=== PATIENT | female | born 1955 | race Caucasian/White ===

== ENCOUNTER → 2018-05-27 09:41 | Outpatient (CLI) | payer OTHER, SELFPAY | PROVIDERS: Family Provider Physician Assistant; PCP Physician Assistant; Visit Provider Physician Assistant | DX: R30.0 Dysuria (principal) | CPT/HCPCS: 87077; 87086; 87186 ==

== ENCOUNTER 2018-09-02 20:25 | Emergency (ER) | payer OTHER, SELFPAY ==
[2018-09-02 20:28] VITALS: PULSE 70; RESP 18; TEMP 36.6; O2SAT 100
--- NOTE | 2018-09-02 20:47 | ED.LOWEXIN ---
HPI - Extremity Injury (Lower) General Chief Complaint: Extremity Injury, Lower Stated Complaint: TWISTED RT KNEE Time Seen by Provider: 09/02/18 20:35 Related Data Previous Rx's Medication Instructions Recorded levothyroxine [Synthroid] 75 mcg PO QAM #90 tab 08/29/17 amlodipine 2.5 mg tablet See Rx Instructions PO DAILY #60 08/09/18 tab Allergies Allergy/AdvReac Type Severity Reaction Status Date / Time codeine [CODEINE] Allergy Severe NAUSEA, Verified 09/02/18 20:32 VOMITING, UPSET STOMACH, PASSING OUT hydrocodone [HYDROCODONE] Allergy Severe NAUSEA, Verified 09/02/18 20:32 VOMITING, UPSET STOMACH AND PASSING OUT oxycodone [OXYCODONE] Allergy Severe NAUSEA, Verified 09/02/18 20:32 VOMITING, UPSET STOMACH AND PASSING OUT PFSH Surgical History History of cataract removal with insertion of prosthetic lens History of tonsillectomy Status post appendectomy Status post breast lumpectomy Family History Mother Lung cancer Social History Smoking Status: Never smoker alcohol intake: current (minimal) Family History Mother Lung cancer Social History Smoking Status: Never smoker alcohol intake: current (minimal) Exam Initial Vital Signs Initial Vital Signs: Vital Signs Temperature 97.8 F 09/02/18 20:28 Pulse Rate 70 09/02/18 20:28 Respiratory Rate 18 09/02/18 20:28 Pulse Oximetry 100 09/02/18 20:28 Course Vital Signs - 8 hr 09/02/18 20:28 Temperature 97.8 F Pulse Rate 70 Respiratory Rate 18 Pulse Oximetry 100 Discharge Plan Departure Prescriptions: No Action levothyroxine [Synthroid] 75 MCG tablet 75 mcg PO QAM Qty: 90 RF: 3 amlodipine 2.5 mg tablet See Rx Instructions PO DAILY Qty: 60 RF: 0
--- NOTE | 2018-09-02 21:17 | DI.RAD.S_ITS ---
PROCEDURE: XR KNEE RT 3V INDICATIONS: knee pain, twisted while skiing TECHNIQUE: 3 views of the knee were acquired. COMPARISON: None. FINDINGS: Bones: No fractures or dislocations. No suspicious bony lesions. Soft tissues: No joint effusion. No suspicious soft tissue calcifications. IMPRESSION: No acute radiographic findings. If pain persists, consider advanced imaging with CT or MRI. Dictated by: Deanna Woodrfuf M.D. on 09/02/2018 at 21:36 Approved by: Deanna Woodruff M.D. on 09/02/2018 at 21:37
[2018-09-02 21:48] VITALS: BP 124/75; PULSE 65; RESP 16; O2SAT 98
[2018-09-02 22:32] VITALS: BP 114/63; PULSE 66; RESP 16; TEMP 36.4; O2SAT 100
--- NOTE | 2018-09-03 04:47 | ED.LOWEXIN ---
HPI - Extremity Injury (Lower) General Chief Complaint: Extremity Injury, Lower Stated Complaint: TWISTED RT KNEE Time Seen by Provider: 09/02/18 20:35 Source: patient Mode of arrival: wheelchair Limitations: no limitations History of Present Illness HPI Narrative: 63-year-old female nonsmoker with history of hypertension presents to the emergency department a chief complaint of right lateral knee pain since a skiing injury earlier in the day. She was actually in line to load a lift when her ski use were caught up in a friend's and she fell, twisting her right knee. She states she did not directly impacted on any hard surface. She denies any history of knee pain. She denies numbness, tingling or weakness. She admits to increasing pain with ambulation and improvement with rest. The majority of her pain is along the lateral aspect of her right knee. She denies hip or ankle pain Related Data Previous Rx's Medication Instructions Recorded levothyroxine [Synthroid] 75 mcg PO QAM #90 tab 08/29/17 amlodipine 2.5 mg tablet See Rx Instructions PO DAILY #60 08/09/18 tab Allergies Allergy/AdvReac Type Severity Reaction Status Date / Time codeine [CODEINE] Allergy Severe NAUSEA, Verified 09/02/18 20:32 VOMITING, UPSET STOMACH, PASSING OUT hydrocodone [HYDROCODONE] Allergy Severe NAUSEA, Verified 09/02/18 20:32 VOMITING, UPSET STOMACH AND PASSING OUT oxycodone [OXYCODONE] Allergy Severe NAUSEA, Verified 09/02/18 20:32 VOMITING, UPSET STOMACH AND PASSING OUT Review of Systems Constitutional Denies chills, Denies fever(s), Denies lethargy and Denies weakness Eyes Denies change in vision, Denies eye discharge, Denies irritation and Denies loss of vision ENT Ears, Nose, Mouth, and Throat: Denies change in voice, Denies neck pain and Denies sore throat Cardiovascular Denies chest pain, Denies irregular heart rhythm, Denies lightheadedness, Denies palpitations, Denies dyspnea, Denies dyspnea on exertion and Denies orthopnea Respiratory Denies cough, Denies dyspnea, Denies dyspnea on exertion and Denies wheezing Gastrointestinal Gastrointestinal: Denies abdominal pain, Denies change in bowel habits, Denies diarrhea, Denies nausea and Denies vomiting Genitourinary Denies hematuria, Denies flank pain, Denies urinary incontinence and Denies urinary urgency Musculoskeletal Reports joint swelling, Reports limited range of motion and Denies neck pain Integumentary/Breasts Denies pruritus, Denies erythema, Denies rash and Denies wounds Neurologic Denies confusion, Denies loss of vision and Denies weakness Psychiatric Denies anxiety, Denies confusion, Denies depression, Denies homicidal ideation and Denies suicidal ideation Endocrine Denies palpitations Hematologic/Lymphatic Denies easy bruising Allergic/Immunologic Denies wheezing PFSH Surgical History History of cataract removal with insertion of prosthetic lens History of tonsillectomy Status post appendectomy Status post breast lumpectomy Family History Mother Lung cancer Social History Smoking Status: Never smoker alcohol intake: current (minimal) Family History Mother Lung cancer Social History Smoking Status: Never smoker alcohol intake: current (minimal) Exam Narrative Exam Narrative: GEN: 63F appears generally healthy. AOx3 and in mild distress, rubbing her knee EYES: Pupils are equal, round, and reactive to light and accommodation. Extraoccular muscles are intact bilaterally. There is no subconjunctival hemorrhage or exudate. CHEST: Lungs are clear to auscultation bilaterally and free of wheezes, rales, or rhonchi. Heart rate is regular rhythm, there are no murmurs, clicks, rubs, or gallops. There is no chest wall tenderness. ABD: Abdomen is soft and nontender. There is no guarding or rebound. Bowel sounds are normal in all 4 quadrants. There is no mass or organomegaly. EXT: Mild effusion, no obvious deformity, tender to palp on lateral joint line, no obvious ligamentous instability. NV in tact distal to injury SKIN: Warm, pink, and dry. No erythema or rash Initial Vital Signs Initial Vital Signs: Vital Signs Temperature 97.8 F 09/02/18 20:28 Pulse Rate 70 09/02/18 20:28 Respiratory Rate 18 09/02/18 20:28 Pulse Oximetry 100 09/02/18 20:28 Course Orders Ordered: ED Orders 09/02/18 21:17 XR knee RT 3V Stat Vital Signs - 8 hr 09/02/18 22:32 Temperature 97.5 F L Pulse Rate 66 Respiratory Rate 16 Blood Pressure 114/63 Pulse Oximetry 100 MDM - Extremity Injury (Lower) Medical Records Attestation: I reviewed the patient's medical records. Lab Data Attestation: I reviewed the patient's lab results. Imaging Data Knee Xray: Radiologist's impression: [address] [address] XRay Report Signed Patient: Lanette Rios JMR#: [id number] : 5Acct:[id number] Age/Sex: 63 / FDate of Service: 09/02/18 Loc: ED Accession Number: [id number] Procedure: XR knee RT 3V Ordering Provider: Ryan Bowling D.O. PROCEDURE: XR KNEE RT 3V INDICATIONS: knee pain, twisted while skiing TECHNIQUE: 3 views of the knee were acquired. COMPARISON: None. FINDINGS: Bones: No fractures or dislocations. No suspicious bony lesions. Soft tissues: No joint effusion. No suspicious soft tissue calcifications. IMPRESSION: No acute radiographic findings. If pain persists, consider advanced imaging with CT or MRI. Dictated by: Deanna Woodruff M.D. on 09/02/2018 at 21:36 Approved by: Deanna Woodruff M.D. on 09/02/2018 at 21:37 [facility] Narrative Medical decision making narrative: As patient's mechanism is most consistent with the soft tissue or ligamentous injury. X-ray demonstrates no obvious fracture. Patient has no complaints of instability with ambulation, only pain. We discussed options for splinting and patient states that she would prefer to wait and try to find a a hinged brace Discharge Plan Departure Patient Disposition: Home Clinical Impression: Internal derangement of knee, acute Qualifiers: Laterality: right Qualified Code(s): M23.91 - Unspecified internal derangement of right knee Discharge Date/Time: 09/02/18 22:34 Interventions: ED Discharge Assessment Last Done: 09/02/18 22:32 Instructions: DI for Knee Pain Activity Restrictions/Additional Instructions: *You have been diagnosed with [ right knee sprain ] *What to do: *Take medications as directed *Follow up with your primary care provider in 2-3 days, call for an appointment. Let them know you were seen in the Emergency Department and that we ask that you be seen in follow up *Return to ER if you should have any new, worsening or concerning symptoms Prescriptions: No Action levothyroxine [Synthroid] 75 MCG tablet 75 mcg PO QAM Qty: 90 RF: 3 amlodipine 2.5 mg tablet See Rx Instructions PO DAILY Qty: 60 RF: 0 Referrals: Karon Fischer PA-C [Primary Care Provider] -
== END 2018-09-02 22:34 | disposition home or self-care (01) ==
PROVIDERS: Emergency Provider Emergency Medicine; Family Provider Physician Assistant; PCP Physician Assistant
DX: M23.91 Unspecified internal derangement of right knee (principal); Y93.23 Activity, snow (alpine) (downhill) skiing, snowboarding, sledding, tobogganing and snow tubing
CPT/HCPCS: 73562; 99282; 99283

== ENCOUNTER → 2018-09-07 09:12 | Outpatient (CLI) | payer OTHER, SELFPAY ==
--- NOTE | 2018-09-07 09:15 | DI.RAD.S_ITS ---
PROCEDURE: XR ELBOW RT MIN 3V INDICATIONS: pain lateral epicondyle TECHNIQUE: 3 views of the elbow were acquired. COMPARISON: None. FINDINGS: Bones: No fractures or dislocations. No suspicious bony lesions. Soft tissues: No elbow joint effusion. No suspicious soft tissue calcifications. IMPRESSION: Normal for age. Dictated by: Abdulaziz Patel M.D. on 09/07/2018 at 10:18 Approved by: Abdulaziz Patel M.D. on 09/07/2018 at 10:18
== END ==
PROVIDERS: Family Provider Physician Assistant; PCP Physician Assistant; Visit Provider Physician Assistant
DX: M25.521 Pain in right elbow (principal)
CPT/HCPCS: 73080

== ENCOUNTER → 2018-11-29 08:09 | Outpatient (CLI) | payer OTHER, SELFPAY ==
[2018-11-29 10:03] LABS: Alanine Aminotransferase 18 IU/L (9-52); Albumin 4.1 g/dL (3.5-5.0); Albumin Globulin Ratio 1.5 (1.0-2.8); Alkaline Phosphatase 88 U/L (38-126); Aspartate Aminotransferase 29 IU/L (14-36); BUN Creatinine Ratio 23.3 (6-22); Bilirubin Total 0.6 mg/dL (0.2-1.3); Blood Urea Nitrogen 21 mg/dL (7-17); Calcium 8.9 mg/dL (8.4-10.2); Carbon Dioxide 31 mmol/L (22-32); Chloride 102 mmol/L (98-107); Estimated Glomerular Filt Rate > 60.0 mL/min (>60); Globulin 2.7 g/dL (1.7-4.1); Glucose 89 mg/dL (80-110); HEMOLYSIS < 15 (0-50); Potassium 4.3 mmol/L (3.4-5.1); Sodium 138 mmol/L (137-145); Total Protein 6.8 g/dL (6.3-8.2)
[2018-11-29 10:37] LABS: Thyroid Stimulating Hormone 2.34 uIU/mL (0.47-4.68)
== END ==
PROVIDERS: Family Provider Physician Assistant; PCP Physician Assistant; Visit Provider Physician Assistant
DX: E03.9 Hypothyroidism, unspecified (principal); E78.5 Hyperlipidemia, unspecified; Z51.81 Encounter for therapeutic drug level monitoring
CPT/HCPCS: 36415; 80053; 84443

== ENCOUNTER 2019-08-11 17:58 | Observation (INO) | payer BC, SELFPAY ==
[2019-08-11 18:10] VITALS: BP 129/96; PULSE 73; RESP 30; TEMP 36.4; O2SAT 100
--- NOTE | 2019-08-11 18:20 | DI.CT.S_ITS ---
PROCEDURE: CT HEAD/BRAIN WO CON INDICATIONS: fall/hit head, now vomiting TECHNIQUE: Noncontrast 4.5 mm thick angled axial sections acquired from the foramen magnum to the vertex, with coronal and sagittal reformats. For radiation dose reduction, the following was used: automated exposure control, adjustment of mA and/or kV according to patient size. COMPARISON: None. FINDINGS: Image quality: Excellent. CSF spaces: Basal cisterns are patent. No extra-axial fluid collections. Ventricles are normal in size and shape. Brain: No midline shift. No intracranial masses or hemorrhage. Orantes-white matter interface is normal. Skull and face: Calvarium and visualized facial bones are intact, without suspicious lesions. Sinuses: Visualized sinuses and mastoids are clear. IMPRESSION: Negative for acute stroke, hemorrhage, or mass. No evidence of significant intracranial sequelae of acute trauma. Dictated by: Arsh Brothers M.D. on 08/11/2019 at 19:56 Approved by: Arsh Brothers M.D. on 08/11/2019 at 19:57
[2019-08-11] MEDS: ONDANSETRON 4 MG/2 ML INJ (18:25)
[2019-08-11] MEDS: SODIUM CHLORIDE 0.9% 1,000 ML 150 ML IV (18:25)
[2019-08-11 18:35] LABS: Alanine Aminotransferase 20 IU/L (<35); Albumin 4.2 g/dL (3.5-5.0); Albumin Globulin Ratio 1.4 (1.0-2.8); Alkaline Phosphatase 80 U/L (38-126); Aspartate Aminotransferase 36 IU/L (14-36); Bilirubin Total 0.6 mg/dL (0.2-1.3); Blood Urea Nitrogen 18 mg/dL (7-17); Calcium 9.2 mg/dL (8.4-10.2); Carbon Dioxide 24 mmol/L (22-32); Chloride 102 mmol/L (98-107); Estimated Glomerular Filt Rate > 60.0 mL/min (>60); Glucose 167 mg/dL (80-110); HEMOLYSIS < 15 (0-50); Sodium 139 mmol/L (137-145); Total Protein 7.2 g/dL (6.3-8.2)
[2019-08-11 18:41] LABS: Add Manual Diff / Slide Review NO; Basophils Absolute Auto 100 /uL (0-100); Basophils Percent Auto 0.6 % (0-2); Eosinophils Absolute Auto 0 /uL (0-450); Hematocrit 36.2 % (36-46); Hemoglobin 12.4 g/dL (12.0-16.0); Lymphocytes Absolute Auto 1700 /uL (1100-4500); Lymphocytes Percent Auto 16.7 % (25-40); Mean Corpuscular HGB Conc 34.2 % (30-36); Mean Corpuscular Hemoglobin 31.8 PG (26-34); Mean Corpuscular Volume 93.1 fL (80-100); Monocytes Absolute Auto 400 /uL (0-900); Monocytes Percent Auto 3.6 % (3-14); Neutrophils Absolute Auto 8000 /uL (1500-7000); Neutrophils Percent Auto 79.1 % (50-75); Platelet Count 258 X10^3/uL (150-400); Red Blood Cell Count 3.89 X10^6/uL (4.0-5.2); Red Cell Distribution Width 13.7 % (11.6-14.8); White Blood Cell Count 10.2 X10^3/uL (4.5-11.0)
[2019-08-11 19:02] LABS: Creatine Kinase 114 U/L (30-135)
[2019-08-11 19:15] LABS: Troponin I < 0.012 ng/mL (0.01-0.034)
[2019-08-11 19:17] LABS: CKMB % Relative Index 1.4 % (1.5-5.0); Creatine Kinase MB 1.61 ng/mL (<2.37)
--- NOTE | 2019-08-11 19:26 | DI.RAD.S_ITS ---
PROCEDURE: XR CHEST 1V INDICATIONS: dizziness syncope TECHNIQUE: One view of the chest was acquired. COMPARISON: [facility], , CHEST 2 VIEW, 08/11/2017, 11:26. FINDINGS: Surgical changes and devices: None. Lungs and pleura: Lungs are clear. No pleural effusions or pneumothorax. Mediastinum: Mediastinal contours appear normal. Heart size is normal. Bones and chest wall: No suspicious bony lesions. Overlying soft tissues appear unremarkable. IMPRESSION: No evidence acute pulmonary process. Dictated by: Arsh Brothers M.D. on 08/11/2019 at 20:21 Approved by: Arsh Brothers M.D. on 08/11/2019 at 20:22
--- NOTE | 2019-08-11 19:33 | ED.NAVMDI ---
HPI - Nausea/Vomiting/Diarrhea General Chief complaint: Nausea/Vomiting/Diarrhea Stated complaint: nausea,vomiting x7 hrs Time Seen by Provider: 08/11/19 18:27 Source: patient Mode of arrival: Wheelchair Limitations: no limitations History of Present Illness HPI Narrative: CC: Passed out at home and I just feel dizzy and sick. HPI: The patient is a 64-year-old female who is a vague historian. She states that she was lying down on the couch because she did not feel good arm that she had had intermittent periods of cold sweats dizziness nausea vomiting and diarrhea. She sat up and felt dizzy and the next thing she remembers is waking up after striking her left side of her head on the coffee table. She initially had a headache but does not have a headache at this time. The left side of her skull and face mildly aches at this time. She does not know how long she was out. She has had periods of uncontrollable shaking but is awake. She denies it being shivers or rigors. She has had multiple episodes where she suddenly developed cold sweats dizziness nausea vomiting and diarrhea. She denies a history of Crohn's disease ulcerative colitis irritable bowel syndrome. She has had no melena or hematochezia in her stool. She describes her dizziness as feeling lightheaded without disequilibrium. She denies a history of diabetes mellitus hypertension seizure stroke congestive heart failure myocardial infarction. The only medication that she takes his levothyroxine for hypothyroidism. She states that she has no energy and just feels woozy especially when she is sitting up. She has had mild headache but no numbness tingling paresthesias anesthesia or paresis. She denies any fever chills or sweats. She has had no loss of vision scotomata or diplopia. She denies any chest pain palpitations cough shortness of breath. She has had no urinary symptoms. Related Data Previous Rx's Medication Instructions Recorded levothyroxine 75 mcg tablet 75 mcg PO QAM #90 tab 06/29/19 ondansetron HCl [Zofran] 4 mg PO Q6-8H PRN #20 tab 08/12/19 Allergies Allergy/AdvReac Type Severity Reaction Status Date / Time codeine [CODEINE] Allergy Severe NAUSEA, Verified 08/11/19 18:16 VOMITING, UPSET STOMACH, PASSING OUT hydrocodone [HYDROCODONE] Allergy Severe NAUSEA, Verified 08/11/19 18:16 VOMITING, UPSET STOMACH AND PASSING OUT oxycodone [OXYCODONE] Allergy Severe NAUSEA, Verified 08/11/19 18:16 VOMITING, UPSET STOMACH AND PASSING OUT Review of Systems Review of Systems ROS Unobtainable: All systems reviewed & are unremarkable except as noted in HPI and below Patient History Medical History Acquired hypothyroidism (Inactive) History of malignant neoplasm of breast (Inactive) Surgical History History of cataract removal with insertion of prosthetic lens History of tonsillectomy Status post appendectomy Status post breast lumpectomy Family History Mother Lung cancer Father Lewy body dementia Brother No significant medical problems Sister Diabetes mellitus Daughter No significant medical problems Social History household members: spouse Smoking Status: Former smoker alcohol intake: current Smoking Status: Never smoker alcohol intake frequency: 0-2 drinks per day Substance Use Type: does not use Exam Narrative Exam Narrative: PHYSICAL EXAM: CONSTITUTIONAL: Awake, arousable keeps her eyes closed answers questions appropriately. She appears as though she has been mildly sweaty and mildly disheveled and ill. HEAD: AT/NC, there is no soft tissue swelling but her lateral left scalp over the temporoparietal region is mildly tender without any bruising or soft tissue swelling. EENT: PERRL, FROM of eyes, no discharge, no nystagmus No drainage from the ears, Tympanic membranes intact bilaterally, clear EAC, no evidence of hemotympanum No epistaxis or nasal drainage Oral mucosa is moist and pink, posterior pharynx is without erythema or exudate. NECK: Supple, no obvious JVD, Trachea is midline without stridor, no palpable LN or masses. SPINE: No gross deformity, no palpable tenderness of the cervical, thoracic, lumbar or sacral spine. No CVA tenderness. The patient became dizzy when a made her sit up. THORAX: No deformity, retractions, chest wall tenderness, subcutaneous air or crepitice. LUNGS: Clear with symmetrical breath sounds without respiratory distress HEART: Normal heart tones, regular rhythm and rate without murmur. ABDOMEN: Soft, non-tender, normal bowel sounds without guarding, rebound, rigidity or palpable mass or organomegaly. EXTREMITIES: No edema, cyanosis, deformity or tenderness. SKIN: No rash, bruising, petechiae or purpura. NEURO: Awake, alert, oriented, conversive, cranial nerves II-XII are symmetrical and normal, moves all 4 extremities and is ambulatory, finger to nose and cerebellar testing were within normal limits. Rapid alternating motions with the ability to oppose all of her fingers simultaneously to her thumbs are intact. She has symmetrical chair trimmer strength. There is no drift. No evidence of dysmetria. Initial Vital Signs Initial Vital Signs: Vital Signs Temperature 97.6 F 08/11/19 18:10 Pulse Rate 73 08/11/19 18:10 Respiratory Rate 30 H 08/11/19 18:10 Blood Pressure 129/96 H 08/11/19 18:10 Pulse Oximetry 100 08/11/19 18:10 Course Course Course Narrative: The patient's chest x-ray was negative for any acute cardiopulmonary pathology. Her CT scan did not show any traumatic injury bleed inside her head. Her EKG does not show any acute diagnostic changes or arrhythmia that would cause her syncope. Since the patient was having cold sweats nausea vomiting diarrhea I question whether not the patient is clinically dehydrated with a vasovagal syncope causing her to fall and hit her head. When the patient is sitting up or attempting to stand up she becomes symptomatic and woozy. She is unable to walk and road test. The patient will be admitted observation status in rehydrated. The patient does not remember who her doctor is and states that she sees a nurse practitioner that is leaving. Records reveal that her previous physician was Dr. Barraza. Dr. Turcios has been called Orders Ordered: Discontinued Medications Acetaminophen (Tylenol) 650 mg PO Q6HR PRN PRN Reason: Fever/Mild Pain (1-3) Last Admin: 08/12/19 02:14 Dose: 325 mg Documented by: LUPILLO Diphenhydramine HCl (Benadryl) 25 mg IV NOW ONE Stop: 08/11/19 19:25 Last Admin: 08/11/19 23:48 Dose: Not Given Documented by: JOSEFINA Enoxaparin Sodium (Lovenox) 40 mg SUBCUT DAILY [facility] Last Admin: 08/12/19 11:24 Dose: Not Given Documented by: AMRITA Sodium Chloride (Normal Saline 0.9%) 1,000 mls @ 150 mls/hr IV CONT [facility] Stop: 08/11/19 22:37 Last Admin: 08/11/19 18:25 Dose: 150 mls/hr Documented by: MACKENZIE Sodium Chloride (Normal Saline 0.9%) 1,000 mls @ 150 mls/hr IV CONT [facility] Last Admin: 08/12/19 00:23 Dose: 150 mls/hr Documented by: LUPILLO Levofloxacin (Levaquin) 750 mg in 150 mls @ 100 mls/hr IV Q24H [facility] Last Infusion: 08/12/19 02:30 Dose: 0 mls/hr Documented by: Admin: 08/12/19 00:47 Dose: 100 mls/hr Documented by: LUPILLO Sodium Chloride (Normal Saline 0.9%) 1,000 mls @ 125 mls/hr IV CONT [facility] Last Admin: 08/12/19 09:50 Dose: 125 mls/hr Documented by: Infusion: 08/12/19 08:10 Dose: 125 mls/hr Documented by: Admin: 08/12/19 00:10 Dose: 125 mls/hr Documented by: LUPILLO Ketorolac Tromethamine (Toradol) 30 mg IV NOW ONE Stop: 08/11/19 20:47 Last Admin: 08/11/19 21:05 Dose: 30 mg Documented by: JOSEFINA Levothyroxine Sodium (Synthroid) 75 mcg PO 0600 [facility] Naloxone HCl (Narcan) 0.2 mg IV Q2MIN PRN PRN Reason: Opiate Reversal Ondansetron HCl (Zofran) 4 mg IV NOW ONE Stop: 08/11/19 18:23 Last Admin: 08/11/19 23:48 Dose: Not Given Documented by: JOSEFINA Ondansetron HCl (Zofran) 4 mg IV NOW ONE Stop: 08/11/19 19:25 Last Admin: 08/11/19 23:49 Dose: Not Given Documented by: JOSEFINA Ondansetron HCl (Zofran) 4 mg IV Q6HR PRN PRN Reason: Nausea And Vomiting Pantoprazole Sodium (Protonix) 40 mg IV DAILY [facility] Last Admin: 08/12/19 11:25 Dose: Not Given Documented by: Admin: 08/12/19 01:54 Dose: 40 mg Documented by: LUPILLO Vital Signs Vital signs: Vital Signs - 8 hr 08/11/19 18:10 08/11/19 20:04 08/11/19 21:30 Temperature 97.6 F Pulse Rate 73 72 Pulse Rate [Orthostatic Lying] 67 Pulse Rate [Orthostatic Sitting] 70 Pulse Rate [Orthostatic Standing] 70 Respiratory Rate 30 H 13 Blood Pressure 129/96 H Blood Pressure [Orthostatic Lying] 120/59 L Blood Pressure [Orthostatic Sitting] 128/57 L Blood Pressure [Orthostatic Standing] 127/58 L Blood Pressure [Right Arm] 113/56 L Pulse Oximetry 100 97 MDM - Nausea/Vomiting/Diarrhea Medical Records Attestation: I reviewed the patient's medical records. Lab Data Attestation: I reviewed the patient's lab results. Result diagrams: 08/12/19 04:56 08/12/19 04:56 Labs: Lab Results 08/11/19 08/11/19 08/11/19 Range/Units 18:10 18:10 18:10 WBC 10.2 (4.5-11.0) X10^3/uL RBC 3.89 L (4.0-5.2) X10^6/uL Hgb 12.4 (12.0-16.0) g/dL Hct 36.2 (36-46) % MCV 93.1 (80-100) fL MCH 31.8 (26-34) PG MCHC 34.2 (30-36) % RDW 13.7 (11.6-14.8) % Plt Count 258 (150-400) X10^3/uL Neut % (Auto) 79.1 H (50-75) % Lymph % (Auto) 16.7 L (25-40) % Hughes % (Auto) 3.6 (3-14) % Eos % (Auto) 0.0 L (2-4) % Baso % (Auto) 0.6 (0-2) % Neut # (Auto) 8000 H (0292-8852) /uL Lymph # (Auto) 1700 (6424-8245) /uL Hughes # (Auto) 400 (0-900) /uL Eos # (Auto) 0 (0-450) /uL Baso # (Auto) 100 (0-100) /uL Sodium 139 (137-145) mmol/L Potassium 4.0 (3.4-5.1) mmol/L Chloride 102 (98-107) mmol/L Carbon Dioxide 24 (22-32) mmol/L BUN 18 H (7-17) mg/dL Creatinine 0.90 (0.52-1.04) mg/dL Estimated GFR > 60.0 (>60) mL/min BUN/Creatinine Ratio 20.0 (6-22) Glucose 167 H (80-110) mg/dL Calcium 9.2 (8.4-10.2) mg/dL Magnesium (1.6-2.3) mg/dL Total Bilirubin 0.6 (0.2-1.3) mg/dL AST 36 (14-36) IU/L ALT 20 (<35) IU/L Alkaline Phosphatase 80 (38-126) U/L Total Creatine Kinase 114 (30-135) U/L CK-MB (CK-2) 1.61 (<2.37) ng/mL CK-MB (CK-2) Rel Index 1.4 L (1.5-5.0) % Troponin I < 0.012 (0.01-0.034) ng/mL Total Protein 7.2 (6.3-8.2) g/dL Albumin 4.2 (3.5-5.0) g/dL Globulin 3.0 (1.7-4.1) g/dL Albumin/Globulin Ratio 1.4 (1.0-2.8) Procalcitonin (<0.5) ng/mL TSH (0.47-4.68) uIU/mL 08/11/19 08/11/19 08/11/19 Range/Units 18:10 18:10 18:10 WBC (4.5-11.0) X10^3/uL RBC (4.0-5.2) X10^6/uL Hgb (12.0-16.0) g/dL Hct (36-46) % MCV (80-100) fL MCH (26-34) PG MCHC (30-36) % RDW (11.6-14.8) % Plt Count (150-400) X10^3/uL Neut % (Auto) (50-75) % Lymph % (Auto) (25-40) % Hughes % (Auto) (3-14) % Eos % (Auto) (2-4) % Baso % (Auto) (0-2) % Neut # (Auto) (1577-0449) /uL Lymph # (Auto) (5125-3022) /uL Hughes # (Auto) (0-900) /uL Eos # (Auto) (0-450) /uL Baso # (Auto) (0-100) /uL Sodium (137-145) mmol/L Potassium (3.4-5.1) mmol/L Chloride (98-107) mmol/L Carbon Dioxide (22-32) mmol/L BUN (7-17) mg/dL Creatinine (0.52-1.04) mg/dL Estimated GFR (>60) mL/min BUN/Creatinine Ratio (6-22) Glucose (80-110) mg/dL Calcium (8.4-10.2) mg/dL Magnesium 2.0 (1.6-2.3) mg/dL Total Bilirubin (0.2-1.3) mg/dL AST (14-36) IU/L ALT (<35) IU/L Alkaline Phosphatase (38-126) U/L Total Creatine Kinase (30-135) U/L CK-MB (CK-2) (<2.37) ng/mL CK-MB (CK-2) Rel Index (1.5-5.0) % Troponin I (0.01-0.034) ng/mL Total Protein (6.3-8.2) g/dL Albumin (3.5-5.0) g/dL Globulin (1.7-4.1) g/dL Albumin/Globulin Ratio (1.0-2.8) Procalcitonin < 0.05 (<0.5) ng/mL TSH 2.79 (0.47-4.68) uIU/mL ECG Data Attestation: I personally reviewed and interpreted this ECG as follows: Interpretation: The patient's EKG obtained on August 11 at 6:18 p.m.: 2 5 reveals a sinus rhythm with an occasional PVC. Intervals appear to be normal. She has a slightly prolonged QTC of 458 milliseconds. She has left axis deviation. She has inverted T-waves in leads V1. She has nonspecific ST segment changes in III V4 V5 V6. There are no acute diagnostic changes. The patient has a small R waves in leads V1 V2 and V3. Discharge Plan Departure Patient Disposition: Admitted as Observation Clinical Impression: Syncope and collapse, Dehydration, Syncope, vasovagal Head injury Qualifiers: Encounter type: initial encounter Qualified Code(s): S09.90XA - Unspecified injury of head, initial encounter Acute post-traumatic headache Qualifiers: Intractability: not intractable Qualified Code(s): G44.319 - Acute post-traumatic headache, not intractable Nausea & vomiting Qualifiers: Vomiting type: unspecified Vomiting Intractability: non-intractable Qualified Code(s): R11.2 - Nausea with vomiting, unspecified Diarrhea Qualifiers: Diarrhea type: unspecified type Qualified Code(s): R19.7 - Diarrhea, unspecified Discharge Date/Time: 08/12/19 00:41 Admit Date/Time: 08/11/19 22:22 Admit Provider: Zack Cintron
--- NOTE | 2019-08-11 19:56 | PC.NURSE ---
Pt declining Benadryl and zofran at this time.
[2019-08-11 20:04] VITALS: BP 120/59; BP 127/58; BP 128/57; PULSE 67; PULSE 70
[2019-08-11 20:17] LABS: Thyroid Stimulating Hormone 2.79 uIU/mL (0.47-4.68)
[2019-08-11] MEDS: KETOROLAC 60 MG/2 ML VIAL 30 MG IV (21:05)
[2019-08-11 21:30] VITALS: BP 113/56; PULSE 72; RESP 13; O2SAT 97
[2019-08-11 23:00] VITALS: BP 107/52; PULSE 63; RESP 15; O2SAT 96
[2019-08-11 23:14] LABS: Procalcitonin < 0.05 ng/mL (<0.5)
--- NOTE | 2019-08-11 23:39 | PM.HP.1 ---
History of Present Illness History of Present Illness Date Patient Seen: 08/11/19 Time Patient Seen: 23:13 Chief complaint: nausea,vomiting x7 hrs Narrative: Ms Lanette Rios is a 64-year-old female with a history significant only for hypothyroidism who presents to the ER today following a syncopal episode. Patient states she was feeling well got up early this morning and went to lay down on the couch to rest. Upon waking at 10:30 a.m. the patient sat up and apparently slumped forward hitting her head on the coffee table. She felt no prodromal symptoms prior to the event but complains left hip pain with onset of nausea and vomiting, diaphoresis and developed diarrhea. She She describes recurrent episodes of vomiting and diarrhea profound weakness and would become dizzy on attempting to set up. She further reports that she had an episode of rigors after arriving at the ER. She reports consuming the same food for the last 24 hours is her who is not ill. She has had no sick contacts though she does endorse that she has been in contact with a friend who was screened but ruled out for handley virus and denies respiratory symptoms. She reports no antecedent fevers or chills and currently has a left-sided headache. She denies visual changes nasal congestion or sore throat. She has no difficulty chewing or swallowing. She denies shortness of breath cough or wheezing. She has abdominal tenderness or related to protracted vomiting and has had multiple bowel movements progressing from soft to diarrhea. She denies urinary symptoms with no frequency burning or urgency. The patient is typically active and fully independent in all ADLs. Upon arrival to the ER the patient is afebrile with temperature 97.8?, heart rate 65, blood pressure 122/64, respirations 16 saturating 98% on room air. Chest x-ray obtained which is unremarkable with no acute cardiopulmonary findings. His CT is negative for stroke, bleed, mass or sequelae of trauma. Twelve lead EKG is sinus rhythm with unifocal PVCs with no evidence of ischemia, anterior Q-waves consistent with septal MA. On laboratory analysis white count is 10.2 with hemoglobin of 12.4 and hematocrit of 36.2 with platelets of 258. Electrolytes are all within normal limits with a BUN of 18 and creatinine of 0.9. She has an elevated glucose at 167. Her magnesium level is 2.0 and liver functions are all within normal range She has a negative procalcitonin at less than 0.05. Total CK is 14 and troponin is negative at less than 0.012. TSH is 2.79. Ambulation trial within the emergency department failed and the patient is admitted to the medicine service for syncope and acute gastroenteritis. Patient History Medical History Acquired hypothyroidism (Inactive) History of malignant neoplasm of breast (Inactive) Surgical History History of cataract removal with insertion of prosthetic lens History of tonsillectomy Status post appendectomy Status post breast lumpectomy Family & Social History Family History (Updated 08/12/19 @ 00:06 by ESTEBAN Mederos) Mother Lung cancer Father Lewy body dementia Brother No significant medical problems Sister Diabetes mellitus Daughter No significant medical problems Safety & Behavioral: Feels Safe in Current Yes Environment Been Physically Hurt or No Threatened By a Person Tobacco & Substance use: Smoking Status Never smoker alcohol intake current alcohol intake frequency 0-2 drinks per day Substance Use Type does not use Comment: Patient lives in a single family home with her to whom she has been for 20 years. She dorsi history of her father having Lewy body dementia passing for complications ammonia. Her mother had lung cancer. She has 1 brother who is in good health and a sister with diabetes. She has 1 daughter who is in good health. Occupation: radiographic technologist Smoking: Past smoker, quit approximately 30 years ago before which she smoked approximately 1/2 pack per day, estimated 6 pack year history. Alcohol: Patient endorses consuming occasional beer or wine. Substance use: The patient denies recreation pharmaceuticals, herbal or cannabis products. Advanced directives: Patient does have formal advanced directive and states her wish to be FULL CODE. She designates her to be her surrogate decision maker. Meds Home Medications and Allergies Home Medications Medication Instructions Recorded Confirmed Type Massage Therapy 1 each .ROUTE .COMPLEX #24 each 09/11/18 Rx lorazepam 0.5 mg tablet 0.5 mg PO QD-BID PRN #10 tab 11/03/18 08/12/19 Rx levothyroxine 75 mcg tablet 75 mcg PO QAM #90 tab 06/29/19 08/11/19 Rx Allergies Allergy/AdvReac Type Severity Reaction Status Date / Time codeine [CODEINE] Allergy Severe NAUSEA, Verified 08/11/19 18:16 VOMITING, UPSET STOMACH, PASSING OUT hydrocodone [HYDROCODONE] Allergy Severe NAUSEA, Verified 08/11/19 18:16 VOMITING, UPSET STOMACH AND PASSING OUT oxycodone [OXYCODONE] Allergy Severe NAUSEA, Verified 08/11/19 18:16 VOMITING, UPSET STOMACH AND PASSING OUT Review of Systems Review of Systems Narrative: All systems reviewed and found unremarkable under discussed in the HPI above. Exam Vital Signs (past 8 hours): - 08/11/19 18:10 08/11/19 20:04 08/11/19 21:30 Temperature 97.6 F Pulse Rate 73 72 Pulse Rate [Orthostatic Lying] 67 Pulse Rate [Orthostatic Sitting] 70 Pulse Rate [Orthostatic Standing] 70 Respiratory Rate 30 H 13 Blood Pressure 129/96 H Blood Pressure [Orthostatic Lying] 120/59 L Blood Pressure [Orthostatic Sitting] 128/57 L Blood Pressure [Orthostatic Standing] 127/58 L Blood Pressure [Right Arm] 113/56 L Pulse Oximetry 100 97 08/11/19 23:00 Temperature Pulse Rate 63 Pulse Rate [Orthostatic Lying] Pulse Rate [Orthostatic Sitting] Pulse Rate [Orthostatic Standing] Respiratory Rate 15 Blood Pressure Blood Pressure [Orthostatic Lying] Blood Pressure [Orthostatic Sitting] Blood Pressure [Orthostatic Standing] Blood Pressure [Right Arm] 107/52 L Pulse Oximetry 96 Oxygen Delivery Method Room Air Narrative Exam Narrative: GENERAL APPEARANCE: Well-developed, overweight female who is moderately ill-appearing resting in speaking with her eyes closed. HEENT: Pain on palpation left temporal head without contusion or ecchymosis, PERRLA, conjunctiva clear, sclera anicteric, EOMs intact without nystagmus, no sinus tenderness to percussion, no rhinorrhea, mucous membranes are moist and pink without lesions or exudate. NECK/THYROID: Full range of motion, no cervical step-offs, no JVD, no carotid bruit, no thyromegaly, trachea midline. LYMPH NODES: no cervical or supraclavicular lymphadenopathy. SKIN: [place], warm and dry, no visible lesions, rashes, ulcerations or petechiae. HEART: regular rate and rhythm, S1-S2, no murmur, no rubs or gallops,no edema, 1+ dorsalis pedis pulse. LUNGS: clear to auscultation bilaterally, no coarseness crackles or wheezing, no cough present CHEST: Symmetrical movement, no accessory muscle use, good tidal volume, no pain to AP and lateral compression. ABDOMEN: Soft, no distention, epigastric tenderness on palpation with abdominal wall tenderness, no guarding or peritoneal signs, no organomegaly, no flank or suprapubic tenderness, active bowel tones. EXTREMITIES: moves all extremities, strength is 5/5 and symmetrical, no deformities or joint effusions. NEUROLOGIC: AAO x4, cranial nerves II-XII grossly intact, sensation intact to light touch, light sensitivity with history of same. PSYCH: Flat affect, drowsy, linear thought process, cooperative. Objective Labs Result Diagrams: 08/11/19 18:10 08/11/19 18:10 Labs: Laboratory Results - last 24 hr 08/11/19 08/11/19 08/11/19 18:10 18:10 18:10 WBC 10.2 RBC 3.89 L Hgb 12.4 Hct 36.2 MCV 93.1 MCH 31.8 MCHC 34.2 RDW 13.7 Plt Count 258 Neut % (Auto) 79.1 H Lymph % (Auto) 16.7 L [place] % (Auto) 3.6 Eos % (Auto) 0.0 L Baso % (Auto) 0.6 Neut # (Auto) 8000 H Lymph # (Auto) 1700 [place] # (Auto) 400 Eos # (Auto) 0 Baso # (Auto) 100 Sodium 139 Potassium 4.0 Chloride 102 Carbon Dioxide 24 BUN 18 H Creatinine 0.90 Estimated GFR > 60.0 BUN/Creatinine Ratio 20.0 Glucose 167 H Calcium 9.2 Magnesium Total Bilirubin 0.6 AST 36 ALT 20 Alkaline Phosphatase 80 Total Creatine Kinase 114 CK-MB (CK-2) 1.61 CK-MB (CK-2) Rel Index 1.4 L Troponin I < 0.012 Total Protein 7.2 Albumin 4.2 Globulin 3.0 Albumin/Globulin Ratio 1.4 Procalcitonin TSH 08/11/19 08/11/19 08/11/19 18:10 18:10 18:10 WBC RBC Hgb Hct MCV MCH MCHC RDW Plt Count Neut % (Auto) Lymph % (Auto) [place] % (Auto) Eos % (Auto) Baso % (Auto) Neut # (Auto) Lymph # (Auto) [place] # (Auto) Eos # (Auto) Baso # (Auto) Sodium Potassium Chloride Carbon Dioxide BUN Creatinine Estimated GFR BUN/Creatinine Ratio Glucose Calcium Magnesium 2.0 Total Bilirubin AST ALT Alkaline Phosphatase Total Creatine Kinase CK-MB (CK-2) CK-MB (CK-2) Rel Index Troponin I Total Protein Albumin Globulin Albumin/Globulin Ratio Procalcitonin < 0.05 TSH 2.79 Assessment & Plan Assessment & Plan narrative: This is a 64-year-old female who had an abrupt syncopal episode without prodromal symptoms followed by protracted nausea vomiting diarrhea and generalized weakness. Patient sustained blunt head trauma and continues to complain of a left-sided headache. 1. Syncopal episode, present on admission, active -Abrupt onset of syncope without prodromal symptoms while sitting up from lying on the couch, unknown duration of unconsciousness. No prior history of syncope. -Upon waking patient complaints of headache is nausea and vomiting followed by diarrhea. -Alert and interactive, keeps her eyes closed reporting light sensitivity with history of same. No cranial nerve deficits, no lateralizing symptoms or paresthesias. -Twelve lead EKG is sinus rhythm with PVCs but no indication of ischemia, old septal infarct. -Head CT is negative for intracranial pathology or trauma. -Patient did develop protracted nausea vomiting and diarrhea, will workup for infectious etiology as described below. -Ordered echocardiogram 2. Gastroenteritis, acute, present on admission, active. -Intractable nausea vomiting and diarrhea with associated diaphoresis and dizziness (not vertiginous) -Still in begins with formed stools becoming diarrhea without melena hematochezia -White blood cell count is 10.2 with a mild left shift, procalcitonin is negative at less than 0.05, magnesium is 2.0. Blood sugar is elevated 167. -obtain blood cultures, ordered GI PCR panel. -Ordered Levaquin 750 mg IV daily. -Ordered pantoprazole 40 mg IV daily. -IV normal saline at 125 cc per hour, orthostatic vital signs Q shift. 3. Blunt head trauma, acute, present on admission, active. -Per patient report it appears she fell forward from a seated position with her head landing on the coffee table. Complains of left-sided headache. -No physical evidence of trauma on exam no contusion, abrasion or ecchymosis. -Patient stated concern is having nausea vomiting following in her head concern for head injury. CT scan is negative for intracranial pathology or trauma. -Patient is not on blood thinners, does not use aspirin or NSAIDs and remains neurologically intact. She does complain light sensitivity with a history of same. -Ordered acetaminophen 650 mg every 4 hours as needed for pain. 4. Generalized weakness, present on admission, active. -Patient unable to ambulate and failed ambulation trial in the emergency department. -Patient's baseline is active in outdoor activities including skiing. She is independent in all ADLs. -PT to evaluate and treat. 5. Acquired hypothyroidism, chronic, stable -TSH is checked in the ED and found to be 2.79. -continue patient's home regimen of levothyroxine 75 mcg daily. VTE prophylaxis: SCDs, Lovenox. Diet: Clear liquids, advance as tolerated. IV fluid: Normal saline 125 cc/hour. The patient is admitted to the hospital due to the severity of her symptoms and risk for complications and adverse events. The patient is admitted as an outpatient with expected length of stay to be less than 2 midnights.
[2019-08-12] VITALS (7 sets, daily range): BP systolic 94–122; BP diastolic 52–62; PULSE 68–87; RESP 15–16; TEMP 36.3–37.4; O2SAT 98–99; BMI 23.4
[2019-08-12] MEDS: SODIUM CHLORIDE 0.9% 1,000 ML 125 ML IV ×2 (00:10→09:50)
[2019-08-12] MEDS: SODIUM CHLORIDE 0.9% 1,000 ML 150 ML IV (00:23)
[2019-08-12] MEDS: levoFLOXacin 750 MG/150 ML PIGGYBACK 100 MG IV (00:47)
--- NOTE | 2019-08-12 00:51 | DI.ECHO.S_ITS ---
[facility] +---------+ [facility] +---------+ : : [address] : : [place], [place] : : : : [id number] : : : : Phone: [phone] Echocardiogram Report + + :Name: AURA SORIA Study Date: 08/12/2019 Height: 62 in : :[facility] Weight: 130 lb : : Gender: Female BSA: 1.6 m2 : :: 1955 Age: 64 yrs BP: 112/60 mmHg: :Reason For Study: Syncope : :Ordering Physician: Gino : :Hospitalist Performed By: LRF : :Referring: GISELLE ROGERS : + + Interpretation Summary 1) Normal left ventricular size, thickness, wall motion, and systolic function (EF 55-60%). 2) Normal right ventricular size and function. 3) No significant valvular abnormalities. 4) No prior Echo available for comparison. Procedure: A two-dimensional transthoracic echocardiogram with color flow and Doppler was performed. The study quality was technically difficult. Patient denied use of definity. The patient was in normal sinus rhythm during the exam. Left Ventricle: The left ventricle is normal in size and wall thickness. The ejection fraction is estimated to be 55-60%. Regional wall motion abnormalities cannot be excluded due to limited visualization. Diastolic parameters suggest probable normal left ventricular diastolic function and normal filling pressures. Right Ventricle: The right ventricle is normal in size and function. Atria: The left atrium is borderline dilated. The right atrium is normal in size. There is no Doppler evidence for an interatrial shunt. Mitral Valve: The mitral valve is normal in structure and function. There is no mitral regurgitation noted. Aortic Valve: The aortic valve is trileaflet. The aortic valve opens well. There is no aortic valve stenosis. No aortic regurgitation is present. Tricuspid Valve: The tricuspid valve is not well visualized, but is grossly normal. There is a trace or physiologic amount of tricuspid regurgitation. Pulmonary artery pressures cannot be estimated because of the lack of a measurable TR jet velocity. Pulmonic Valve: The pulmonic valve is not well visualized. There is no pulmonic valvular regurgitation. Great Vessels: The aortic root is normal size. The aortic arch is normal in size. The ascending aorta could not be visualized. The IVC is of normal diameter and collapses greater than 50% with a sniff. This suggests a low right atrial pressure of 3 mm Hg. Pericardium/ Pleura There is no pericardial effusion. MMode/2D Measurements & Calculations LVIDd: 3.9 cm LVOT diam: 2.0 cm LVIDs: 2.8 cm Ao root diam: 3.1 cm FS: 27.3 % Ao Arch Diam (Prox Trans): 1.8 cm IVSd: 0.61 cm LVPWd: 0.68 cm LV ledezma. diameter/BSA (cm/m^2): 2.5 LV sys. diameter/BSA (cm/m^2): 1.8 LA A2 area: 17.4 cm2 RA long axis: 4.2 cm LA A4 area: 17.8 cm2 RA area: 12.8 cm2 LA length (vol): 4.8 cm RA vol: 33.1 ml LA vol: 54.6 ml RA : 20.8 ml/m2 LA vol index: 34.3 ml/m2 IVC diam: 1.8 cm RVD1 (basal): 3.2 cm RVD2 (mid): 2.3 cm TAPSE: 2.3 cm Doppler Measurements & Calculations Ao V2 max: 128.0 cm/sec LVOT Max Дмитрий: 104.4 cm/sec Ao V2 mean: 87.6 cm/sec LV V1 max P.4 mmHg Ao max P.6 mmHg LV V1 VTI: 23.8 cm Ao mean P.4 mmHg FILI(I,D): 2.5 cm2 Ao V2 VTI: 31.2 cm FILI(V,D): 2.7 cm2 sev ratio: 0.76 FILI indexed to BSA (cm^2/m^2): 1.6 MV E max дмитрий: 85.3 cm/sec PA V2 max: 75.1 cm/sec MV A max дмитрий: 58.9 cm/sec PA V2 mean: 49.0 cm/sec MV E/A: 1.4 PA mean P.1 mmHg Med Peak E' Дмитрий: 10.4 cm/sec PA Accel Time: 0.21 sec E/E' med: 8.2 Lat Peak E' Дмитрий: 11.4 cm/sec E/E' lat: 7.5 E/e' average: 7.8 MV dec time: 0.18 sec MV P1/2t: 50.3 msec MV P1/2t max дмитрий: 83.5 cm/sec SV(LVOT): 77.5 ml MVA(P1/2t): 4.4 cm2 Reading Physician:11:47 AM
--- NOTE | 2019-08-12 01:04 | PC.ADMIT ---
Addendum entered by Blanca Bradshaw R.N. 08/12/19 02:17: Up to bathroom with 1 assist. States she feels lightheaded but denies room spinning. UA obtained and sent to lab. Addendum entered by Blanca Bradshaw R.N. 08/12/19 02:16: Complaining of continued 4/10 head and now neck pain; medicated with 325mg of Tylenol (patient requested only 1 tab be given) and warm blanket applied for comfort. Original Note: 0003 patient admitted to room 205 per stretcher from ER. Orthostatic VS done with drop in systolic from lying to sitting and increase in HR. Patient is alert and oriented. States she is slightly [place] in right ear but denies use of hearing aid. Complains of 4/10 dull headache but declines pain medication. Difficulty with bright lights at present time as exacerbates the headache so patient mostly lying with eyes closed. HRR with telemetry reading of SR. Slight nausea but declines antiemetic but requests apple juice; reports nausea/vomiting prior to arrival in ER. BT hypoactive; reports diarrhea prior to arrival in ER. Voided in ER; denies dysuria, frequency, urgency or incontinence. Is able to move self in bed. Has dizziness which is exacerbated by movement so needed 2 assists to transfer from stretcher into bed. No skin issues noted. Calf SCD's applied as per order. Fall risk score is high as patient reports falling from sitting position onto coffee table at home prior to exhibiting symptoms of nausea, vomiting and diarrhea; bed alarm is activated and patient verbalizes understanding. Oriented to bed controls and call light. [email or web address] [place] [address] Admission Note: The patient,Lanette Rios,64 y/o, was given written information regarding hospital policies, unit procedures and contact persons. Patient's smoking status: Former smoker. Vital Signs - 8 hr 08/11/19 18:10 08/11/19 20:04 08/11/19 21:30 Temperature 97.6 F Pulse Rate 73 72 Pulse Rate [Orthostatic Lying] 67 Pulse Rate [Orthostatic Sitting] 70 Pulse Rate [Orthostatic Standing] 70 Respiratory Rate 30 H 13 Blood Pressure 129/96 H Blood Pressure [Orthostatic Lying] 120/59 L Blood Pressure [Orthostatic Sitting] 128/57 L Blood Pressure [Orthostatic Standing] 127/58 L Blood Pressure [Right Arm] 113/56 L Pulse Oximetry 100 97 08/11/19 23:00 08/12/19 00:03 Temperature 97.3 F L Pulse Rate 63 69 Pulse Rate [Orthostatic Lying] 69 Pulse Rate [Orthostatic Sitting] 74 Pulse Rate [Orthostatic Standing] 87 Respiratory Rate 15 16 Blood Pressure 111/57 L Blood Pressure [Orthostatic Lying] 111/57 L Blood Pressure [Orthostatic Sitting] 94/59 L Blood Pressure [Orthostatic Standing] 95/52 L Blood Pressure [Right Arm] 107/52 L Pulse Oximetry 96 98
[2019-08-12] MEDS: PANTOPRAZOLE 40 MG VIAL IV (01:54)
[2019-08-12] MEDS: ACETAMINOPHEN 325 MG TABLET 650 MG PO (02:14)
[2019-08-12 02:37] LABS: Bacteria Urine None Seen; RBC Urine None Seen (0-5/HPF); WBC Urine None Seen (0-5/HPF)
[2019-08-12 02:38] LABS: Appearance Urine UA CLEAR; Bilirubin Urine UA NEGATIVE (NEGATIVE); Color Urine UA YELLOW; Glucose Urine UA NEGATIVE (Negative); Ketones Urine UA TRACE (NEGATIVE); Leukocyte Esterase Urine UA NEGATIVE (NEGATIVE); Nitrite Urine UA NEGATIVE (Negative); Occult Blood Urine UA NEGATIVE (Negative); Protein Urine UA NEGATIVE (Negative); Specific Gravity Urine UA 1.025 (1.000-1.035); Urobilinogen Urine UA 0.2 E.U./dL (0.2)
[2019-08-12 02:41] LABS: pH Urine UA 6.5 (4.5-8.0)
[2019-08-12 02:42] LABS: Culture Indicated Urine Cult Not Indicated; Urine Comments Microscopic Normal
[2019-08-12 05:20] LABS: Add Manual Diff / Slide Review NO; Basophils Absolute Auto 0 /uL (0-100); Basophils Percent Auto 0.5 % (0-2); Eosinophils Absolute Auto 0 /uL (0-450); Eosinophils Percent Auto 0.4 % (2-4); Hematocrit 32.3 % (36-46); Hemoglobin 10.9 g/dL (12.0-16.0); Lymphocytes Absolute Auto 2200 /uL (1100-4500); Lymphocytes Percent Auto 29.4 % (25-40); Mean Corpuscular HGB Conc 33.8 % (30-36); Mean Corpuscular Hemoglobin 31.9 PG (26-34); Mean Corpuscular Volume 94.4 fL (80-100); Monocytes Absolute Auto 700 /uL (0-900); Monocytes Percent Auto 9.1 % (3-14); Neutrophils Absolute Auto 4500 /uL (1500-7000); Neutrophils Percent Auto 60.6 % (50-75); Platelet Count 225 X10^3/uL (150-400); Red Blood Cell Count 3.43 X10^6/uL (4.0-5.2); Red Cell Distribution Width 13.9 % (11.6-14.8); White Blood Cell Count 7.4 X10^3/uL (4.5-11.0)
[2019-08-12 05:23] LABS: BUN Creatinine Ratio 17.5 (6-22); Blood Urea Nitrogen 14 mg/dL (7-17); Calcium 8.4 mg/dL (8.4-10.2); Carbon Dioxide 28 mmol/L (22-32); Chloride 106 mmol/L (98-107); Estimated Glomerular Filt Rate > 60.0 mL/min (>60); Glucose 88 mg/dL (80-110); HEMOLYSIS < 15 (0-50); Potassium 3.9 mmol/L (3.4-5.1); Sodium 139 mmol/L (137-145)
[2019-08-12 06:30] LABS: Procalcitonin < 0.05 ng/mL (<0.5)
--- NOTE | 2019-08-12 10:07 | PT.IIE ---
Surgical History (Last Reviewed 08/12/19 @ 00:04 by ESTEBAN Mederos) History of cataract removal with insertion of prosthetic lens History of tonsillectomy Status post appendectomy Status post breast lumpectomy Medical History (Last Reviewed 08/12/19 @ 00:04 by ESTEBAN Mederos) Acquired hypothyroidism (Inactive) History of malignant neoplasm of breast (Inactive) Physical Therapy Inpatient Evaluation/Re-Eval M1 PT/OT-IP Prior Functional Status Start: 08/12/19 09:41 Freq: NEEDED Status: Active Protocol: Document 08/12/19 08:57 NFW (Rec: 08/12/19 10:06 [facility] [id number]) Medical Review Prior Functional Status Medical History Reviewed Yes Communication Patient didn't sleep well last night, feeling drowsy. Mobility and Gait No assistive devices needed for daily activities. Activities of Daily Living and IADL's Totally independent with ADL, IADLs. Prior Functional Level (Other details) Very active lifestyle including downhill skiing, hiking, biking and daily walks with the dog. Independent with housekeeping, cooking, shopping. Drives as needed. Social History Household Members spouse Living Arrangements House Number of Floors (Floors) Two Floors Number of Stairs To Enter/Railing? None Home Environment Standard Height Toilet,Tub/ Shower Home Equipment Grab Bars In Shower M2 PT-IP Current Condition Start: 08/12/19 09:41 Freq: NEEDED Status: Active Protocol: Document 08/12/19 08:57 NFW (Rec: 08/12/19 10:06 [facility] [id number]) Physical Therapy Current Condition Current Condition Evaluation Date 08/12/19 Treatment Diagnosis Syncope episode hitting head on coffee table, NOGUERA, fatigue Onset Date 08/11/19 Precautions Other Precautions Mask required when entering room. 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 Patient Goals Return home with . Therapy Pain Assessment Pain When Pain Assessed At Rest Pain Present Pain Present Pain Reported Location Head Intensity 1 Scale Used Numeric (1 - 10) Description Aching M4 PT-IP Mobility and Gait Start: 08/12/19 09:41 Freq: NEEDED Status: Active Protocol: Document 08/12/19 08:57 NFW (Rec: 08/12/19 10:06 [facility]W [id number]) PT-Bed Mobility Assessment Rolling Level of Assist Independent Supine to Sit Supine to Sit Standby Assistance Sit to Supine Sit to Supine Independent Scooting Scooting to Edge of Bed Standby Assistance Scooting Up and Down in Bed Independent PT-Transfer Assessment Sit to and From Stand Sit to and from Stand Standby Assistance,1 Person Assistance Equipment Transfer Assistive Device Gait Belt Orthotic/Prosthetic Devices or Brace: No Transfers Transfer Destination Bed,Chair,Toilet Transfer Ability Level of Assist Standby Assistance Comments Mobility Comments SBA recommended in transitional activities due to lightheadedness when going between supine to sitting, sitting to standing and after standing activities. BP supine 107/56, pulse 76, O2 , 99 BP sitting 112/21, pulse 76 - cuff readjusted then remeasured BP sitting 107/65, pulse 75 BP after standing exercises 111/44, pulse 72 BP sitting after above exercises 107/53, pulse 72 Gait Assessment Gait Gait Assistance Required: Contact Guard Assist,1 Person Assist Distance (Feet) 60 Able to Maintain Weight Bearing Status Yes During Gait Assistive Devices Assistive Device Gait Belt Orthotic/Prosthetic Devices or Brace: No Gait Deviations General Gait Pattern Flexed Trunk Factors Limiting Gait Function Factors Limiting Gait Function Abnormal Tonal Influences, Decreased Activity Tolerance Comments Gait Comments Pt ambulates pushing the IV pole on her own. Gait belt used for safety due to recurring lightheadedness. Overall posture poor currently in ambulation with flexed trunk. PT-Balance Assessment Sitting Balance and Reactions Static Sitting Balance Ability Normal Dynamic Sitting Balance Ability Normal Standing Balance and Reactions Static Standing Balance Ability Normal Dynamic Standing Balance Ability Normal Balance Tests Single Limb Standing 18 secs right with good control, 16 secs left fair cont Romberg negative Comments Other Balance Tests/Deviations/Treatment Standing marches with good : form. Heel and toe walk with light balance assist. In static standing bears weight to left. M5 PT-IP Objective Assessments Start: 08/12/19 09:41 Freq: NEEDED Status: Active Protocol: Document 08/12/19 08:57 NFW (Rec: 08/12/19 10:06 [facility] [id number]) Orientation Orientation/Cognition Level of Alertness Alert Orientation Name,Age,Date,Place,Situation Language Function Ability No Deficits Noted Comments Answered all questions appropriately and followed instructions well. Gross Range of Motion Upper Extremity ROM Assessment Within Functional Limits Lower Extremity ROM Assessment Within Functional Limits Strength Upper Extremity Strength Assessment Within Functional Limits Lower Extremity Strength Assessment Within Functional Limits Muscle Tone Muscle Tone WNL Yes M7 PT-IP Assessment and Plan Start: 08/12/19 09:41 Freq: NEEDED Status: Active Protocol: Document 08/12/19 08:57 NFW (Rec: 08/12/19 10:06 NF[facility] [id number]) PT Summary Assessment and Plan Potential Rehabilitation Potential Excellent Status of Condition at Evaluation Evolving Summary Impairments Balance,Coordination,Transfers ,Gait Progress Towards Goals Progressing Toward Goals Assessment Summary Pt post episode of syncope while sitting and hitting head on table. Subsequent symptoms of nausea, vomiting, NOGUERA. Pt susceptible to LBP especially with transitional activities. Due to this recommend SBA with transitional activities and ambulation. Contained treatment to room since requirement of mask with entering room. Goals Bed Mobility Goal Independent Transfer Goal Independent Gait Goal Independent Gait Distance 600 Days to Meet Goals 3 Frequency of Treatment Frequency Of Treatment Once a Day Treatment Plan Physical Therapy Treatment Plan Bed Mobility Training,Transfer Training,Gait Training, Therapeutic Exercise,Balance Retraining,Coordination Retraining Recommendations To Nursing Amount of Assist Needed 1 Person Assist Discharge Recommendations PT Discharge Recommendations Home with Assistance
--- NOTE | 2019-08-12 10:10 | PC.NURSE ---
Addendum entered by Osvaldo Mojica R.N. 08/12/19 14:53: Per Dr Valderrama orders no one is to disturb this Pt till after 16:00. Addendum entered by Osvaldo Mojica R.N. 08/12/19 11:27: Dr. Gamboa talking with Pt and presently. Addendum entered by Osvaldo Mojica R.N. 08/12/19 11:00: Pt finished Echo. Will catch up on meds and discuss plan of care. Original Note: Pt wakes easily, voices multiple concerns, spoke with Care management of Pt's behalf. Pt questioning every order. Pt presently having echo per orders. Continue to support Pt and reassure her that all is being done to sort out what caused syncopal event.
[2019-08-12 12:12] LABS: Magnesium 2.1 mg/dL (1.6-2.3)
--- NOTE | 2019-08-12 14:04 | CM.DANOTE ---
Addendum entered by Alla Pierce LPN 08/12/19 14:33: A check in now with RN Osvaldo reveals that ECHO has been completed and awaiting report. He states that Dr. Gamboa continues to request that staff stay out of room until after 1600 and that pt is expected to d/c home later this evening with her and outpt followup. Addendum entered by Alla Pierce LPN 08/12/19 14:20: PT Sloane did see pt this morning. She noted her baseline as functionally independent and very active, involved in many sports. Today she is recommending that pt go home with assistance as she is not yet at her baseline. P: Check in tomorrow with hospitalist who will be taking over caseload and follow up with pt for any issues and options. Dr. Gamboa does say pt is determined to go home later today. Original Note: Discharge Planning/Care Management DCP: assessment: case received, EMR reviewed, discussed in Team Rounds. OF NOTE: Dr. Gamboa saw pt and her and went over the POC. Dr. Gamboa reported to this DCPlanner then that pt was very upset re thought that she might have to stay on overnight and she was disagreeing with Dr. Gamboa re the recommendations. Dr. Gamboa said she was requesting that pt be left to rest and hopefully calm down and that she not be seen today for further assessment. She said pt will be going home at d/c either later today or tomorrow. 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 Pt is a 64 year old female who lives in [place] with her . Admitted to care of hospitalist team last night: see H&P by ESTEBAN Cintron. Pt had syncopal episode in which she hit her head and remained with L sided headache. ? of viral illness. Work up for etiology of same was planned. Pt was unable to ambulate in the ER and PT was ordered. DCP team will be following but for today will abide by Dr. Gamboa's strong request that pt not be disturbed. Advanced directive, confirm from FAMILY Start: 08/12/19 00:38 Freq: Q24H Status: Active Protocol: Document 08/12/19 09:00 AWF (Rec: 08/12/19 10:59 AWF [id number]) Advance Directive, confirm on record Time 11:00 Person contacted Have not approached Pt presently as she has more pressing concerns to discu Copy received No CM Discharge Assessment Start: 08/12/19 14:03 Freq: Status: Active Protocol: Document 08/12/19 14:03 ITV (Rec: 08/12/19 14:04 ITV [id number]) Discharge Planning Assessment Advance Directives? Yes History Provided By Medical Record Prior Living Arrangements House Household Members spouse Independent with ADL's Yes Is patient alert and oriented? Yes Review Status In Process
[2019-08-12 14:14] LABS: Adenovirus Not Detected (Not Detect); Bordetella pertussis Not Detected (Not Detect); Chlamydophila pneumoniae Not Detected (Not Detect); Coronavirus 229E Not Detected (Not Detect); Coronavirus HKU1 Not Detected (Not Detect); Coronavirus NL 63 Not Detected (Not Detect); Coronavirus OC43 Not Detected (Not Detect); Human Metapneumovirus Not Detected (Not Detect); Human Rhinovirus/Enterovirus Not Detected (Not Detect); Influenza A Not Detected (Not Detect); Influenza B Not Detected (Not Detect); Mycoplasma pneumoniae Not Detected (Not Detect); Parainfluenza Virus 1 Not Detected (Not Detect); Parainfluenza Virus 2 Not Detected (Not Detect); Parainfluenza Virus 3 Not Detected (Not Detect); Parainfluenza Virus 4 Not Detected (Not Detect); Respiratory Syncytial Virus Not Detected (Not Detect)
--- NOTE | 2019-08-12 16:53 | P.DS_ITS ---
History of Present Illness History of Present Illness Date Patient Seen: 08/11/19 Chief complaint: nausea,vomiting x7 hrs Narrative: Written by Zack ORELLANA: Ms Lanette Rios is a 64-year-old female with a history significant only for hypothyroidism who presents to the ER today following a syncopal episode. Patient states she was feeling well got up early this morning and went to lay down on the couch to rest. Upon waking at 10:30 a.m. the patient sat up and apparently slumped forward hitting her head on the coffee table. She felt no prodromal symptoms prior to the event but complains left hip pain with onset of nausea and vomiting, diaphoresis and developed diarrhea. She She describes recurrent episodes of vomiting and diarrhea profound weakness and would become dizzy on attempting to set up. She further reports that she had an episode of rigors after arriving at the ER. She reports consuming the same food for the last 24 hours is her who is not ill. She has had no sick contacts though she does endorse that she has been in contact with a friend who was screened but ruled out for handley virus and denies respiratory symptoms. She reports no antecedent fevers or chills and currently has a left-sided headache. She denies visual changes nasal congestion or sore throat. She has no difficulty chewing or swallowing. She denies shortness of breath cough or wheezing. She has abdominal tenderness or related to protracted vomiting and has had multiple bowel movements progressing from soft to diarrhea. She denies urinary symptoms with no frequency burning or urgency. The patient is typically active and fully independent in all ADLs. Upon arrival to the ER the patient is afebrile with temperature 97.8?, heart rate 65, blood pressure 122/64, respirations 16 saturating 98% on room air. Chest x-ray obtained which is unremarkable with no acute cardiopulmonary findings. His CT is negative for stroke, bleed, mass or sequelae of trauma. Twelve lead EKG is sinus rhythm with unifocal PVCs with no evidence of ischemia, anterior Q-waves consistent with septal IA. On laboratory analysis white count is 10.2 with hemoglobin of 12.4 and hematocrit of 36.2 with platelets of 258. Electrolytes are all within normal limits with a BUN of 18 and creatinine of 0.9. She has an elevated glucose at 167. Her magnesium level is 2.0 and liver functions are all within normal range She has a negative procalcitonin at less than 0.05. Total CK is 14 and troponin is negative at less than 0.012. TSH is 2.79. Ambulation trial within the emergency department failed and the patient is admitted to the medicine service for syncope and acute gastroenteritis. Discharge Providers Provider Date of admission: 08/11/19 22:22 Discharge Date: 08/12/19 Primary care physician: Karon Fischer PA-C Consults: 08/11/19 22:42 Consult to Discharge Planning Routine Comment: general weakness, blunt head trauma 08/11/19 22:43 Consult to Physical Therapy Evaluate & Treat Comment: general weakness, blunt head trauma Physician Instructions: Evaluate and Treat Discharge provider: Lainey Gamboa DO Summary Hospital Course Discharge Diagnosis: 1. Syncopal episode, present on admission. Resolved. 2. Acute gastroenteritis, present on admission. Resolved. 3. Blunt head trauma, acute, present on admission. Resolved. 4. Generalized weakness, present on admission. Resolving. 5. Hypothyroidism, chronic, present on admission. Stable. Hospital Course: Lanette Rios is a 64-year-old female who presented after abrupt syncopal episode without prodromal symptoms followed by protracted nausea, vomiting, diarrhea and generalized weakness. 1. Syncopal episode, present on admission. Resolved. -Abrupt onset of syncope without prodromal symptoms while sitting up on the couch. Unknown duration of unconsciousness and upon waking patient complained of headache with nausea and vomiting followed by diarrhea. -Alert and interactive, keeps her eyes closed reporting light sensitivity with history of same. No cranial nerve deficits, no lateralizing symptoms or paresthesias. -EKG demonstrated sinus rhythm with PVCs but no acute ischemic changes such as ST elevation or depression or pathological Q-waves. -CT head without contrast did not demonstrate any acute intracranial abnormalities. -Patient has remote history of fainting during sports with concern for HOCM, valvular disease, etc., therefore, ordered echocardiogram which was unremarkable. 2. Acute gastroenteritis, present on admission. Resolved. -Patient presented with intractable nausea, vomiting and diarrhea with associa robinson diaphoresis and dizziness (not vertiginous). -WBC normal 10.2, procalcitonin is negative at less than 0.05, magnesium is 2.0. Blood sugar is elevated 167. -Blood cultures had no growth to date. -Orthostatic vital signs positive and resolved with IV fluid hydration. Continued IV fluid hydration until adequately hydrated then discontinued. -Canceled GI stool panel as patient had no recurrence of diarrhea. -Respiratory viral PCR negative. -Received Levaquin 750 mg IV x1 which was discontinued as patient infectious workup was negative. -Received pantoprazole 40 mg IV x1. 3. Blunt head trauma, acute, present on admission. Resolved. -Per patient report it appears she fell forward from a seated position with her head landing on the coffee table. Complained of left-sided headache on admi ssion which has resolved. -No physical evidence of trauma on exam including contusion, abrasion or e cchymosis. -CT brain without contrast did not demonstrate any acute intracranial abnormalities. -Patient is not on blood thinners, does not use aspirin or NSAIDs and remains neurologically intact. -Continued acetaminophen 650 mg every 4 hours as needed for pain. 4. Generalized weakness, present on admission. Resolving. -Patient was initially unable to ambulate and failed ambulation trial in the emergency department. -Patient is independent in all ADLs and is active in several outdoor activities including downhill snow skiing. -Consulted physical therapy for evaluation treatment. Recommended home with assistance. 5. Hypothyroidism, chronic, present on admission. Stable. -TSH normal at 2.79. Continue levothyroxine 75 mcg daily. Exam Vital Signs (past 8 hours): - 08/12/19 12:00 08/12/19 16:02 08/12/19 16:04 Temperature Pulse Rate Pulse Rate [Orthostatic Lying] 69 69 Pulse Rate [Orthostatic Sitting] 72 72 Pulse Rate [Orthostatic Standing] 79 79 Respiratory Rate Blood Pressure Blood Pressure [Orthostatic Lying] 115/56 L 115/62 Blood Pressure [Orthostatic Sitting] 118/58 L 118/58 L Blood Pressure [Orthostatic Standing] 122/62 122/62 Pulse Oximetry 98 08/12/19 16:05 Temperature 99.4 F Pulse Rate 73 Pulse Rate [Orthostatic Lying] Pulse Rate [Orthostatic Sitting] Pulse Rate [Orthostatic Standing] Respiratory Rate 16 Blood Pressure 115/56 L Blood Pressure [Orthostatic Lying] Blood Pressure [Orthostatic Sitting] Blood Pressure [Orthostatic Standing] Pulse Oximetry 98 Oxygen Delivery Method Room Air Oxygen Flow Rate 0 Narrative Exam Narrative: General: Older female lying in bed and in no acute distress, appears ill, combative and irritable. HEENT: Normocephalic, atraumatic. External ears without defect. Pupils equal, round, and reactive to light. Anicteric sclerae, moist conjunctivae, and no lid lag. Neck: Supple with full range of motion. No jugular venous distension. No lymphadenopathy or thyromegaly. Cardiovascular: Regular rate and rhythm without murmurs, rubs, or gallops appreciated. Pulmonary: Clear to auscultation bilaterally without crackles, wheezes, or rhonchi. Normal respiratory effort with no use of accessory muscles. Abdomen: Soft, bowel sounds present, nontender, nondistended. No hepatosplenomegaly or masses appreciated. Extremities: No clubbing, cyanosis, or edema. Skin: Normal temperature, turgor, and texture; no rash, ulcers, or subcutaneous nodules appreciated. Neurological: Cranial nerves grossly intact. Psychiatric: Combative and irritable. Alert and oriented to person, place, and time. Objective Labs Result Diagrams: 08/12/19 04:56 08/12/19 04:56 Labs: Laboratory Results - last 24 hr 08/11/19 08/11/19 08/11/19 18:10 18:10 18:10 WBC 10.2 RBC 3.89 L Hgb 12.4 Hct 36.2 MCV 93.1 MCH 31.8 MCHC 34.2 RDW 13.7 Plt Count 258 Neut % (Auto) 79.1 H Lymph % (Auto) 16.7 L [place] % (Auto) 3.6 Eos % (Auto) 0.0 L Baso % (Auto) 0.6 Neut # (Auto) 8000 H Lymph # (Auto) 1700 [place] # (Auto) 400 Eos # (Auto) 0 Baso # (Auto) 100 Sodium 139 Potassium 4.0 Chloride 102 Carbon Dioxide 24 BUN 18 H Creatinine 0.90 Estimated GFR > 60.0 BUN/Creatinine Ratio 20.0 Glucose 167 H Calcium 9.2 Magnesium Total Bilirubin 0.6 AST 36 ALT 20 Alkaline Phosphatase 80 Total Creatine Kinase 114 CK-MB (CK-2) 1.61 CK-MB (CK-2) Rel Index 1.4 L Troponin I < 0.012 Total Protein 7.2 Albumin 4.2 Globulin 3.0 Albumin/Globulin Ratio 1.4 Procalcitonin TSH Urine Color Urine Appearance Urine pH Ur Specific [place] Urine Protein Urine Glucose (UA) Urine Ketones Urine Occult Blood Urine Nitrate Urine Bilirubin Urine Urobilinogen Ur Leukocyte Esterase Urine RBC Urine WBC Urine Bacteria Ur Culture Indicated? Micro UA Comment Chlamy pneumoniae PCR Adenovirus (PCR) B.parapertussis DNA PCR Coronavirus OC43 (PCR) Coronavirus HKU1 (PCR) Coronavirus 229E (PCR) Coronavirus NL63 (PCR) Human Metapneumovir PCR Influenza Type A (PCR) Influenza Type B (PCR) M. pneumoniae (PCR) Parainfluenza 1 (PCR) Parainfluenza 2 (PCR) Parainfluenza 3 (PCR) Parainfluenza 4 (PCR) RSV (PCR) Entero/Rhino (PCR) 08/11/19 08/11/19 08/11/19 18:10 18:10 18:10 WBC RBC Hgb Hct MCV MCH MCHC RDW Plt Count Neut % (Auto) Lymph % (Auto) [place] % (Auto) Eos % (Auto) Baso % (Auto) Neut # (Auto) Lymph # (Auto) [place] # (Auto) Eos # (Auto) Baso # (Auto) Sodium Potassium Chloride Carbon Dioxide BUN Creatinine Estimated GFR BUN/Creatinine Ratio Glucose Calcium Magnesium 2.0 Total Bilirubin AST ALT Alkaline Phosphatase Total Creatine Kinase CK-MB (CK-2) CK-MB (CK-2) Rel Index Troponin I Total Protein Albumin Globulin Albumin/Globulin Ratio Procalcitonin < 0.05 TSH 2.79 Urine Color Urine Appearance Urine pH Ur Specific [place] Urine Protein Urine Glucose (UA) Urine Ketones Urine Occult Blood Urine Nitrate Urine Bilirubin Urine Urobilinogen Ur Leukocyte Esterase Urine RBC Urine WBC Urine Bacteria Ur Culture Indicated? Micro UA Comment Chlamy pneumoniae PCR Adenovirus (PCR) B.parapertussis DNA PCR Coronavirus OC43 (PCR) Coronavirus HKU1 (PCR) Coronavirus 229E (PCR) Coronavirus NL63 (PCR) Human Metapneumovir PCR Influenza Type A (PCR) Influenza Type B (PCR) M. pneumoniae (PCR) Parainfluenza 1 (PCR) Parainfluenza 2 (PCR) Parainfluenza 3 (PCR) Parainfluenza 4 (PCR) RSV (PCR) Entero/Rhino (PCR) 08/12/19 08/12/19 08/12/19 02:10 04:56 04:56 WBC 7.4 RBC 3.43 L Hgb 10.9 L Hct 32.3 L MCV 94.4 MCH 31.9 MCHC 33.8 RDW 13.9 Plt Count 225 Neut % (Auto) 60.6 Lymph % (Auto) 29.4 [place] % (Auto) 9.1 Eos % (Auto) 0.4 L Baso % (Auto) 0.5 Neut # (Auto) 4500 Lymph # (Auto) 2200 [place] # (Auto) 700 Eos # (Auto) 0 Baso # (Auto) 0 Sodium 139 Potassium 3.9 Chloride 106 Carbon Dioxide 28 BUN 14 Creatinine 0.80 Estimated GFR > 60.0 BUN/Creatinine Ratio 17.5 Glucose 88 Calcium 8.4 Magnesium Total Bilirubin AST ALT Alkaline Phosphatase Total Creatine Kinase CK-MB (CK-2) CK-MB (CK-2) Rel Index Troponin I Total Protein Albumin Globulin Albumin/Globulin Ratio Procalcitonin TSH Urine Color Yellow Urine Appearance Clear Urine pH 6.5 Ur Specific [place] 1.025 Urine Protein Negative Urine Glucose (UA) Negative Urine Ketones Trace H Urine Occult Blood Negative Urine Nitrate Negative Urine Bilirubin Negative Urine Urobilinogen 0.2 Ur Leukocyte Esterase Negative Urine RBC None seen Urine WBC None seen Urine Bacteria None seen Ur Culture Indicated? Cult not indicated Micro UA Comment Microscopic normal Chlamy pneumoniae PCR Adenovirus (PCR) B.parapertussis DNA PCR Coronavirus OC43 (PCR) Coronavirus HKU1 (PCR) Coronavirus 229E (PCR) Coronavirus NL63 (PCR) Human Metapneumovir PCR Influenza Type A (PCR) Influenza Type B (PCR) M. pneumoniae (PCR) Parainfluenza 1 (PCR) Parainfluenza 2 (PCR) Parainfluenza 3 (PCR) Parainfluenza 4 (PCR) RSV (PCR) Entero/Rhino (PCR) 08/12/19 08/12/19 08/12/19 04:56 04:56 12:05 WBC RBC Hgb Hct MCV MCH MCHC RDW Plt Count Neut % (Auto) Lymph % (Auto) [place] % (Auto) Eos % (Auto) Baso % (Auto) Neut # (Auto) Lymph # (Auto) [place] # (Auto) Eos # (Auto) Baso # (Auto) Sodium Potassium Chloride Carbon Dioxide BUN Creatinine Estimated GFR BUN/Creatinine Ratio Glucose Calcium Magnesium 2.1 Total Bilirubin AST ALT Alkaline Phosphatase Total Creatine Kinase CK-MB (CK-2) CK-MB (CK-2) Rel Index Troponin I Total Protein Albumin Globulin Albumin/Globulin Ratio Procalcitonin < 0.05 TSH Urine Color Urine Appearance Urine pH Ur Specific [place] Urine Protein Urine Glucose (UA) Urine Ketones Urine Occult Blood Urine Nitrate Urine Bilirubin Urine Urobilinogen Ur Leukocyte Esterase Urine RBC Urine WBC Urine Bacteria Ur Culture Indicated? Micro UA Comment Chlamy pneumoniae PCR Not detected Adenovirus (PCR) Not detected B.parapertussis DNA PCR Not detected Coronavirus OC43 (PCR) Not detected Coronavirus HKU1 (PCR) Not detected Coronavirus 229E (PCR) Not detected Coronavirus NL63 (PCR) Not detected Human Metapneumovir PCR Not detected Influenza Type A (PCR) Not detected Influenza Type B (PCR) Not detected M. pneumoniae (PCR) Not detected Parainfluenza 1 (PCR) Not detected Parainfluenza 2 (PCR) Not detected Parainfluenza 3 (PCR) Not detected Parainfluenza 4 (PCR) Not detected RSV (PCR) Not detected Entero/Rhino (PCR) Not detected Discharge Plan Discharge Plan Patient Disposition: Home Discharge comment: You are being discharged home. Your CT scan of your brain and echocardiogram were normal and not because of your syncope. You have received IV fluids to rehydrate you. You likely have a viral gastroenteritis leading to dehydration, orthostatic hypotension and syncope. Please try to stay well hydrated and get plenty of rest. You may slowly advance your diet as tolerated. You have been prescribed Zofran 4 mg every 6-8 hours as needed for nausea or vomiting. Please follow-up with your primary care provider, Sanam Fischer, regarding your hospitalization in the next 1-2 weeks. Discharge orders & Medications Prescriptions: New ondansetron HCl [Zofran] 4 mg tablet 4 mg PO Q6-8H PRN (Reason: nausea and vomiting) Qty: 20 RF: 0 Continued levothyroxine [Synthroid] 75 mcg tablet 75 mcg PO QAM Qty: 90 RF: 0 Follow up/Referrals: Karon Fischer PA-C [Primary Care Provider] - 2 Weeks Diet/Activity/Treatments Diet: Diet as Tolerated Activity: Activity as tolerated Visit Report/Discharge Packet Instructions: DI for Syncope in Adults (Fainting), DI for Dehydration -- Adult, DI for Viral Gastroenteritis -- Adult, Gastroenteritis Diet Discharge Data Primary Care Provider: Karon Fischer Attending Provider: Zack Cintron Admit Date/Time: 08/11/19 22:22 Discharges patient from system. Discharge Date/Time: 08/12/19 18:27 Quality VTE Deep Vein Thrombosis/Pulmonary Embolism Present on Admission: No
--- NOTE | 2019-08-12 17:52 | PC.NURSE ---
Discharge Note Patient A&O, VSS, RA, tele SR, no complaints of pain or discomfort. Discharge packet reviewed with patient, no questions or concerns. Telemetry and PIV discontinued. Patients belongings and discharge packet packed and given to spouse. Patient taken down to personal vehicle via wheelchair.
--- NOTE | 2019-08-12 18:36 | PC.NURSE ---
letter written by prov. was copied and placed in patients chart and org. was given to patient's spouse per pt req. Patient was escorted down to personal vehicle by staff with belongings in hand. Patient was in stable condition upon d/c, VSS, no dizziness, nausea/vomiting.
== END 2019-08-12 18:27 | disposition home or self-care (01) ==
LOC: ED 22:09 → AC 22:23
PROVIDERS: Internal Medicine; Nurse Practitioner; Admitting Provider Nurse Practitioner Adult Health; Emergency Provider Emergency Medicine; Family Provider Physician Assistant; PCP Physician Assistant; Visit Provider Nurse Practitioner Adult Health
DX: R55 Syncope and collapse (principal); R11.2 Nausea with vomiting, unspecified; W18.00XA Striking against unspecified object with subsequent fall, initial encounter; Y92.009 Unspecified place in unspecified non-institutional (private) residence as the place of occurrence of the external cause; R53.1 Weakness; E03.9 Hypothyroidism, unspecified; K52.9 Noninfective gastroenteritis and colitis, unspecified
CPT/HCPCS: 36415; 70450; 71045; 80048; 80053; 81001; 82550; 82553; 83735; 84145; 84443; 84484; 85025; 87040; 87633; 93005; 93306; 96361; 96365; 96366; 96375; 97161; 97530; 99284; 99285; G0378; C9113; J1885; J1956; J2405

== ENCOUNTER → 2019-08-31 14:26 | Outpatient (CLI) | payer BC, SELFPAY ==
[2019-08-12 00:24] VITALS: BMI 23.4
[2019-08-31 15:21] LABS: Add Manual Diff / Slide Review NO; Basophils Absolute Auto 100 /uL (0-100); Basophils Percent Auto 1.1 % (0-2); Eosinophils Absolute Auto 100 /uL (0-450); Eosinophils Percent Auto 1.2 % (2-4); Hematocrit 36.6 % (36-46); Hemoglobin 12.3 g/dL (12.0-16.0); Lymphocytes Absolute Auto 2500 /uL (1100-4500); Lymphocytes Percent Auto 40.4 % (25-40); Mean Corpuscular HGB Conc 33.5 % (30-36); Mean Corpuscular Hemoglobin 31.8 PG (26-34); Mean Corpuscular Volume 94.9 fL (80-100); Monocytes Absolute Auto 600 /uL (0-900); Monocytes Percent Auto 9.8 % (3-14); Neutrophils Absolute Auto 2900 /uL (1500-7000); Neutrophils Percent Auto 47.5 % (50-75); Platelet Count 261 X10^3/uL (150-400); Red Blood Cell Count 3.85 X10^6/uL (4.0-5.2); Red Cell Distribution Width 14.1 % (11.6-14.8); White Blood Cell Count 6.1 X10^3/uL (4.5-11.0)
== END ==
PROVIDERS: Family Provider Physician Assistant
DX: R55 Syncope and collapse (principal)
CPT/HCPCS: 36415; 85025

== ENCOUNTER → 2019-10-02 13:30 | Outpatient (CLI) | payer BC, SELFPAY ==
[2019-08-12 00:24] VITALS: BMI 23.4
[2019-10-04 01:33] LABS: COVID19 Sendout Not Detected (Not Detected)
== END ==
PROVIDERS: Family Provider Physician Assistant; Visit Provider Family Medicine
DX: Z20.828 Contact with and (suspected) exposure to other viral communicable diseases (principal)
CPT/HCPCS: 87635

== ENCOUNTER → 2019-12-26 09:52 | Outpatient (CLI) | payer OTHER, SELFPAY ==
[2019-08-12 00:24] VITALS: BMI 23.4
[2019-12-26 11:06] LABS: Thyroid Stimulating Hormone 3.74 uIU/mL (0.47-4.68)
[2019-12-26 11:14] LABS: Add Manual Diff / Slide Review NO; Basophils Absolute Auto 0 /uL (0-100); Basophils Percent Auto 0.9 % (0-2); Eosinophils Absolute Auto 100 /uL (0-450); Eosinophils Percent Auto 1.8 % (2-4); Hematocrit 37.1 % (36-46); Hemoglobin 12.4 g/dL (12.0-16.0); Lymphocytes Absolute Auto 2100 /uL (1100-4500); Lymphocytes Percent Auto 42.2 % (25-40); Mean Corpuscular HGB Conc 33.4 % (30-36); Mean Corpuscular Hemoglobin 32.1 PG (26-34); Mean Corpuscular Volume 95.9 fL (80-100); Monocytes Absolute Auto 500 /uL (0-900); Monocytes Percent Auto 10.9 % (3-14); Neutrophils Absolute Auto 2200 /uL (1500-7000); Neutrophils Percent Auto 44.2 % (50-75); Platelet Count 255 X10^3/uL (150-400); Red Blood Cell Count 3.87 X10^6/uL (4.0-5.2)
[2019-12-26 11:18] LABS: Alanine Aminotransferase 16 IU/L (<35); Albumin 4.2 g/dL (3.5-5.0); Albumin Globulin Ratio 1.7 (1.0-2.8); Alkaline Phosphatase 65 U/L (38-126); Aspartate Aminotransferase 32 IU/L (14-36); BUN Creatinine Ratio 18.1 (6-22); Bilirubin Total 0.6 mg/dL (0.2-1.3); Blood Urea Nitrogen 17 mg/dL (7-17); Calcium 9.2 mg/dL (8.4-10.2); Carbon Dioxide 29 mmol/L (22-32); Chloride 103 mmol/L (98-107); Cholesterol 247 mg/dL (140-199); Globulin 2.5 g/dL (1.7-4.1); Glucose 94 mg/dL (80-110); HDL Cholesterol 53 mg/dL (40-60); HEMOLYSIS < 15 (0-50); LDL Cholesterol Calculated 176 mg/dL (<100); Potassium 4.3 mmol/L (3.4-5.1); Sodium 138 mmol/L (137-145); Total Protein 6.7 g/dL (6.3-8.2); Triglycerides 91 mg/dL (35-150); VLDL Cholesterol Calculated 18 mg/dL (2-30)
== END ==
PROVIDERS: Family Provider Physician Assistant; Referring Provider Physician Assistant; Visit Provider Physician Assistant
DX: Z00.00 Encounter for general adult medical examination without abnormal findings (principal); Z13.220 Encounter for screening for lipoid disorders; Z13.6 Encounter for screening for cardiovascular disorders
CPT/HCPCS: 36415; 80053; 80061; 84443; 85025

== ENCOUNTER → 2021-03-20 12:40 | Outpatient (CLI) | payer BC, SELFPAY ==
[2019-08-12 00:24] VITALS: BMI 23.4
--- NOTE | 2021-03-20 12:42 | DI.RAD.S_ITS ---
PROCEDURE: XR DEXA AXIAL SKELETON INDICATIONS: Unspecified menopausal and perimenopausal disorder COMPARISON: None. FINDINGS: This blank DEXA report has been sent in error by the PACS system. The correct and complete report will be forthcoming in 1-2 days. Thank you for your patience and understanding. Dictated by: Warren Morillo M.D. on 03/20/2021 at 14:35 Approved by: Warren Morillo M.D. on 03/20/2021 at 14:35
== END ==
PROVIDERS: Family Provider Physician Assistant; Referring Provider Student in an Organized Health Care Education/Training Program; Visit Provider Student in an Organized Health Care Education/Training Program
DX: N95.9 Unspecified menopausal and perimenopausal disorder (principal); M81.0 Age-related osteoporosis without current pathological fracture
CPT/HCPCS: 77080

== ENCOUNTER → 2023-03-24 14:57 | Outpatient (CLI) | payer BC, SELFPAY ==
[2019-08-12 00:24] VITALS: BMI 23.4
--- NOTE | 2023-03-24 | DI.RAD.S_ITS ---
Bone Density Report Name: AURA SORIA Age: 67 Sex: Female Ethnicity: White Date of : 1955 Indication: postmenopausal osteoporosis; monitoring treatment; Referring Provider: MYESHA POE Study: Bone densitometry was performed. Exam Date: March 24, 2023 Accession number: [id number] Bone Density: Region BMD T-score Z-score Classification AP Spine(L1-L4) 0.610 -4.0 -2.0 Osteoporosis Femoral Neck (Left) 0.368 -4.3 -2.7 Osteoporosis Total Hip (Left) 0.483 -3.8 -2.4 Osteoporosis Femoral Neck (Right) 0.402 -4.0 -2.4 Osteoporosis Total Hip (Right) 0.553 -3.2 -1.8 Osteoporosis Total Hip Mean 0.518 -3.5 -2.1 Osteoporosis World Health Organization criteria for BMD impression classify patients as: Normal (T-score at or above -1.0), Osteopenia (T-score between -1.0 and -2.5), or Osteoporosis (T-score at or below -2.5). 10-year Fracture Risk: FRAX not reported because: Some T-score for Spine Total or Hip Total or Femoral Neck at or below -2.5 Treated for osteoporosis Previous Exams: -- Region Exam Age BMD T-score BMD Change BMD Change Date g/cm2 vs Baseline vs Previous -- AP Spine (L1-L4) 03/24/2023 67 0.610 -4.0 -0.012 (-1.9%)# -0.012 (-1.9%)# 03/20/2021 65 0.622 -3.9 Total Hip(Left) 03/24/2023 67 0.483 -3.8 -0.002 (-0.4%)# -0.002 (-0.4%)# 03/20/2021 65 0.486 -3.7 Total Hip(Right) 03/24/2023 67 0.553 -3.2 0.019 (3.5%)# 0.019 (3.5%)# 03/20/2021 65 0.534 -3.3 -- *Denotes significance at 95% confidence level, LSC for AP Spine = 0.022 g/cm2, LSC for Total Hip = 0.027 g/cm2 # Denotes dissimilar scan types or analysis methods Impression: The patient has osteoporosis, based on the Left Femoral Neck T-score. No significant bone loss was observed. Discussion: PATIENT UNDER TREATMENT WITH NO SIGNIFICANT BMD LOSS SINCE LAST EXAM. In an untreated patient, BMD typically declines with age. A lack of decline or gain is usually a sign that treatment is efficacious and fracture risk is reduced. It is important to ask patients whether they are taking their medications and to encourage continued and appropriate compliance with their osteoporosis therapies to reduce fracture risk. It is also important to review their risk factors and encourage appropriate calcium and vitamin D intakes, exercise, fall prevention and other lifestyle measures. Follow-Up: Consider a repeat BMD and Vertebral Fracture Assessment (VFA) exam in 2 years or sooner if medically necessary, to reassess this patient's status. Reported by: RIVKA BABB MD on 03/24/2023 3:21:00 PM.
== END ==
PROVIDERS: Family Provider Physician Assistant; PCP Student in an Organized Health Care Education/Training Program; Referring Provider Student in an Organized Health Care Education/Training Program; Visit Provider Student in an Organized Health Care Education/Training Program
DX: M81.0 Age-related osteoporosis without current pathological fracture (principal); Z78.0 Asymptomatic menopausal state; C95.90 Leukemia, unspecified not having achieved remission
CPT/HCPCS: 77080

== ENCOUNTER → 2025-04-11 12:15 | Outpatient (CLI) | payer BC, SELFPAY ==
[2019-08-12 00:24] VITALS: BMI 23.4
--- NOTE | 2025-04-11 12:17 | DI.RAD.S_ITS ---
PROCEDURE: XR DEXA AXIAL SKELETON INDICATIONS: Osteoporosis Screening COMPARISON: [facility], , XR DEXA AXIAL SKELETON, 03/24/2023, 15:12. [facility], [place], XR DEXA AXIAL SKELETON, 03/20/2021, 13:19. FINDINGS: Lumbar Spine: Bone mineral density 0.651 g/cm2, T score -3.6, increased by 6.8%. Left Femoral Neck: Bone mineral density 0.411 g/cm2, T score -3.9. Left Hip: Bone mineral density 0.552 g/cm2, T score -3.2, increased by 14.2%. Fracture Risk Calculation (when applicable): 10-year fracture risk of a major osteoporotic fracture 41 percent and of a hip fracture 23 percent. (T score greater or equal to -1.0 to: NORMAL) (T score from -1.1 to -2.4: OSTEOPENIA) (T score less than or equal to -2.5: OSTEOPOROSIS) IMPRESSION: Osteoporosis by WHO classification. Follow-up guidelines as follows: Osteoporosis: Consider a repeat DEXA and Vertebral Fracture Assessment (VFA) exam in 2 years or sooner if medically necessary, to reassess this patient's status. Osteopenia: Consider a repeat DEXA in 2-3 years to reassess this patient's status, or if there is a new clinical indication. Normal: Consider a repeat DEXA in 5 years or sooner, or if there is a new clinical indication. All treatment decisions require clinical judgment and consideration of individual patient factors, including patient preferences, comorbidities, previous drug use, risk factors not captured in the FRAX model (e.g., frailty, falls, vitamin D deficiency, increased bone turnover, interval significant decline in bone density ) and possible under- or over-estimation of fracture risk by FRAX. In addition, the NOF Guide recommends that FDA-approved medical therapies be considered in postmenopausal women and men age >= 50 years with a: * Hip or vertebral (clinical or morphometric) fracture * T-score of <=-2.5 at the spine or hip * Ten-year fracture probability by FRAX of >= 3% for hip fracture or >=20% for major osteoporotic fracture. Dictated by: Chas Paredes M.D. on 04/12/2025 at 15:10 Approved by: Chas Paredes M.D. on 04/12/2025 at 15:11
== END ==
PROVIDERS: Family Provider Physician Assistant; PCP Physician Assistant; Referring Provider Physician Assistant; Visit Provider Physician Assistant
DX: M81.0 Age-related osteoporosis without current pathological fracture (principal); Z78.0 Asymptomatic menopausal state
CPT/HCPCS: 77080